=== PATIENT | female | born 1970 | race Hispanic/Latino ===

== ENCOUNTER 2017-06-02 09:35 | Outpatient (CLI) | payer OTHER ==
--- NOTE | 2017-06-02 10:13 | Mammography Report ---
LEFT DIGITAL DIAGNOSTIC MAMMOGRAM: 06/02/17 09:35:00 CLINICAL: For clip placement immediately status post ultrasound biopsy. COMPARISON:A recent outside mammogram. FINDINGS: A biopsy clip is now identified in the lower inner quadrant and correlates with the mass identified by ultrasound. IMPRESSION: Concordant clip placement status post ultrasound biopsy. BI-RADS CATEGORY: 4--Suspicious Pathology pending.
== END 2017-06-02 09:36 | disposition home or self-care (01) ==
LOC: SPVIMAG 09:35
PROVIDERS: ATTEND Surgery
DX: R92.8 Other abnormal and inconclusive findings on diagnostic imaging of breast (principal)
CPT/HCPCS: G0206-LT

== ENCOUNTER 2017-06-03 15:35 | Outpatient (CLI) | payer OTHER | END 2017-06-03 15:36 | disposition home or self-care (01) | LOC: LABHHL 15:35 | PROVIDERS: ATTEND Surgery | DX: C50.911 Malignant neoplasm of unspecified site of right female breast (principal) | CPT/HCPCS: 88305; 88361 ==

== ENCOUNTER 2017-06-24 12:54 | Outpatient (CLI) | payer OTHER ==
--- NOTE | 2017-06-26 11:31 | Magnetic Resonance Report ---
BILATERAL BREAST MRI WITHOUT AND WITH CONTRAST: 06/24/17 12:54:00 CLINICAL: Newly diagnosed left breast cancer. Status post ultrasound guided needle biopsy on 06/02/17 with findings of invasive mammary carcinoma with ductal and lobular features, grade 2. COMPARISON:06/02/17 left mammogram. TECHNIQUE: Axial 1.0-mm T1 without, axial high resolution 2.0-mm T2 and axial 1.0-mm dynamic Vibrant high-resolution postcontrast T1 fat saturation sequences on a 1.5 Lila magnet. The examination was performed with an 8 channel dedicated [employer] breast coil. Post processing with CAD and subtraction was performed on an [employer] workstation. 14.0 cc of Multihance was injected without incident via a right antecubital vein 22-gauge INT for the contrast portion of the exam. Consent was obtained prior to the administration of the contrast. FINDINGS: Right: Mild background parenchymal enhancement. No mass or suspicious enhancement. No suspicious right axillary or right internal mammary lymph nodes. Left: Mild background parenchymal enhancement. The known cancer is an irregular enhancing mass at 7 o'clock 6.6 cm from the nipple measuring 16.2 x 10.6 x 9.3 mm. It demonstrates heterogeneous enhancement with mixed kinetics, 148% peak enhancement in 10% type III washout. Lesion 2 is a suspicious irregular enhancing mass at 6:30 o'clock 5.3 cm from the nipple measuring 11.4 x 6.3 x 4.6 mm. It demonstrates heterogeneous enhancement with mixed kinetics, 154% peak enhancement in 1% type III washout. Lesion 3 is an irregular enhancing mass at 5 o'clock 6.1 cm from the nipple measuring 15.6 x 11.3 x 7.3 mm. It demonstrates heterogeneous enhancement with mixed kinetics, 199% peak enhancement and 7% type III washout. The known cancer and lesion 2 span approximately 3 cm in a ductal orientation toward the nipple. Lesion 3 is approximately 2.8 cm lateral to the known cancer and approximately 2.4 cm posterior and lateral from lesion 2. No suspicious left axillary or left internal mammary lymph nodes. IMPRESSION: Known left breast cancer at 7 o'clock and 2 additional highly suspicious masses of the left breast at 6 o'clock and 5 o'clock. Negative right breast. No suspicious lymph nodes. RIGHT BI-RADS 1 -- Negative LEFT BI-RADS 6 -- Known Cancer
== END 2017-06-24 12:55 | disposition home or self-care (01) ==
LOC: SPVIMAG 12:54
PROVIDERS: ATTEND Surgery
DX: C50.312 Malignant neoplasm of lower-inner quadrant of left female breast (principal)
CPT/HCPCS: A9577; C8908; 77059

== ENCOUNTER 2017-07-16 08:04 | Outpatient (CLI) | payer OTHER ==
--- NOTE | 2017-07-16 15:16 | Magnetic Resonance Report ---
MRI GUIDED VACUUM ASSISTED CORE BIOPSY AT TWO SITES LEFT BREAST: 07/16/17 CLINICAL: Known left breast cancer and 7 o'clock. 2 additional suspicious lesions of the left breast. COMPARISON: 06/24/17 MRI FINDINGS: Consent for the procedure was obtained. A Vibrant dynamic postcontrast series was performed on a 1.5 Lila magnet using an 8 channel Sent[employer]elle dedicated breast coil. 15.0 cc of Multihance was injected intravenously without incident via a right antecubital vein 20-gauge INT. The previously identified additional suspicious lesions were localized and targeted using [employer] Sentinelle biopsy software. The skin was anesthetized with 1% lidocaine and small dermatotomies were performed. 2% lidocaine was administered for deeper anesthesia. 9-G biopsy was performed with an [employer] (PVT) vacuum assisted device. Imaging demonstrated satisfactory positioning of the probe at the two sites and satisfactory samples were obtained. Clips were placed at both sites after confirmation of adequate sampling. The probes were removed and hemostasis was achieved with pressure to the sites. Sterile dressings were applied. The patient tolerated the procedure well and there were no apparent complications. A two view mammogram demonstrated concordant placement of both clips. The patient left the department in good condition and was given instructions instructions for wound care and follow-up. IMPRESSION: Uncomplicated MRI biopsy with clip placement at two sites left breast.
--- NOTE | 2017-07-16 15:16 | Magnetic Resonance Report ---
MRI GUIDED VACUUM ASSISTED CORE BIOPSY AT TWO SITES LEFT BREAST: 07/16/17 CLINICAL: Known left breast cancer and 7 o'clock. 2 additional suspicious lesions of the left breast. COMPARISON: 06/24/17 MRI FINDINGS: Consent for the procedure was obtained. A Vibrant dynamic postcontrast series was performed on a 1.5 Lila magnet using an 8 channel Sentinelle dedicated breast coil. 15.0 cc of Multihance was injected intravenously without incident via a right antecubital vein 20-gauge INT. The previously identified additional suspicious lesions were localized and targeted using [employer] biopsy software. The skin was anesthetized with 1% lidocaine and small dermatotomies were performed. 2% lidocaine was administered for deeper anesthesia. 9-G biopsy was performed with an [employer] vacuum assisted device. Imaging demonstrated satisfactory positioning of the probe at the two sites and satisfactory samples were obtained. Clips were placed at both sites after confirmation of adequate sampling. The probes were removed and hemostasis was achieved with pressure to the sites. Sterile dressings were applied. The patient tolerated the procedure well and there were no apparent complications. A two view mammogram demonstrated concordant placement of both clips. The patient left the department in good condition and was given instructions instructions for wound care and follow-up. IMPRESSION: Uncomplicated MRI biopsy with clip placement at two sites left breast.
--- NOTE | 2017-07-17 14:18 | Mammography Report ---
LEFT DIGITAL DIAGNOSTIC MAMMOGRAM: 07/16/17 08:04:00 CLINICAL: For clip placement immediately status post MRI guided needle biopsy at 2 sites. COMPARISON:06/02/17 FINDINGS: Two biopsy clips at 6 o'clock and 6:30 o'clock correlate with the areas biopsied by MRI guidance and they are labeled 1 and 2 respectively.A third clip correlates with the known cancer at 7 o'clock. IMPRESSION: Concordant clip placement status post MRI biopsy at 2 sites. BI-RADS CATEGORY: 6 -- Known Cancer Pathology pending.
== END 2017-07-16 08:05 | disposition home or self-care (01) ==
LOC: SPVIMAG 08:04
PROVIDERS: ATTEND Surgery
DX: N64.9 Disorder of breast, unspecified (principal); C50.312 Malignant neoplasm of lower-inner quadrant of left female breast
CPT/HCPCS: 19085; 19086; 77065; 88305; A9577

== ENCOUNTER 2017-07-21 08:06 | Outpatient (CLI) | payer OTHER ==
--- NOTE | 2017-07-22 10:02 | Ultrasound Report ---
ULTRASOUND GUIDED CLIP PLACEMENT LEFT BREAST: 07/21/17 Clinical: Known left breast cancer and status post recent MRI guided biopsy of two additional lesions with discordant pathology results. This study is being done to identify and place a clip at 5 o'clock at the site of a recent MRI a biopsy. Finding: Ultrasound of the left breast demonstrated a solid irregular hypoechoic shadowing mass at 5 o'clock 5 cm from the nipple which correlates with the suspicious finding on MRI. It measures 7 x 6 x 5 mm. Mild fluid at 5:30 o'clock 5 cm from the nipple measures 1.0 x 0.2 cm. The known cancer is a 7 o'clock with a biopsy clip. A hematoma at 6 o'clock 5 cm from the nipple measures 2.2 x 0.6 cm. With ultrasound guidance and 1% lidocaine for local anesthesia, a localizer clip was placed within the mass at 5 o'clock. The patient tolerated the procedure well and there were no apparent complications. A post procedure mammogram demonstrated for biopsy clips. The new clip is at 5 o'clock is concordant with the MRI finding in the lateral breast. IMPRESSION: Known cancer at 7 o'clock and a suspicious 7 mm mass at 5 o'clock 5 cm from the nipple. A localizer clip was placed within the mass at 5 o'clock.
--- NOTE | 2017-07-22 10:07 | Mammography Report ---
LEFT DIGITAL DIAGNOSTIC MAMMOGRAM: 07/21/17 08:06:00 CLINICAL: Known cancer at 7 o'clock. For clip placement immediately status post ultrasound guided placement of a clip at 5 o'clock 5 cm from the nipple. This new clip has been placed within a suspicious mass that correlates with a suspicious finding on the recent MRI. This clip placement necessitated by discordant path results from recent MRI biopsy at 5 o'clock. COMPARISON:07/16/17 FINDINGS: A new biopsy clip is identified at 5 o'clock and correlates with the mass identified on today's ultrasound. The known cancer is a 7 o'clock and 2 additional biopsy clips at 5:30 and 6:30 o'clock were placed at recent MRI biopsy which yielded negative pathology. IMPRESSION: Concordant clip placement. BI-RADS CATEGORY: 6--Known cancer Pathology pending.
== END 2017-07-21 08:07 | disposition home or self-care (01) ==
LOC: SPVIMAG 08:06
PROVIDERS: ATTEND Surgery
DX: C50.912 Malignant neoplasm of unspecified site of left female breast (principal); R92.8 Other abnormal and inconclusive findings on diagnostic imaging of breast; N64.89 Other specified disorders of breast
CPT/HCPCS: 76642; 76998; 77065; A4648

== ENCOUNTER 2017-07-22 05:49 | Day surgery (SDC) | payer OTHER ==
[~2017-07-22 05:49] MED LIST: MARCAINE 0.25% INFILTRATI ONE; WATER FOR IRRIG STERILE IR ONE; XYLOCAINE 1% 20 mL INFILTRATI ONE
[2017-07-22] MEDS ORDERED: NACL BACTERIOSTATIC INFILTRATI ONE (06:33)
[2017-07-22] MEDS ORDERED: XYLOCAINE 1% 20 mL ONE (07:36)
[2017-07-22] MEDS ORDERED: DIPRIVAN 10 MG/ML IV ONE (07:56)
--- NOTE | 2017-07-22 08:07 | Anesthesia Consultation ---
Anesthesia Consult and Med Hx Date of service: 07/22/17 - Airway Anesthetic Teeth Evaluation: Good ROM Head & Neck: Adequate Mental/Hyoid Distance: Adequate Mallampati Class: Class II Intubation Access Assessment: Probably Good - Pulmonary Exam CTA: Yes - Cardiac Exam Cardiac Exam: RRR (Grade 1 IWONA) - Pre-Operative Health Status ASA Pre-Surgery Classification: ASA3 Proposed Anesthetic Plan: General - Pulmonary Hx Smoking: No Hx Asthma: Yes (utilized regular inhaler) - Cardiovascular System Hx Hypertension: No Hx Heart Murmur: Yes - Central Nervous System Hx Psychiatric Problems: No - Gastrointestinal Hx Gastroesophageal Reflux Disease: No - Endocrine Hx Hypothyroidism: Yes - Other Systems Hx Alcohol Use: No Hx Substance Use: No Hx Cancer: Yes
[2017-07-22] MEDS ORDERED: DILAUDID IV PRN (08:08)
[2017-07-22] MEDS ORDERED: ZOFRAN IV PRN (08:08)
--- NOTE | 2017-07-22 08:08 | Anesthesia Day of Surgery ---
Anesthesia Day of Surgery - Day of Surgery Patient Examined: Yes Patient H&P Reviewed: Yes Patient is NPO: Yes Beta Blockers: Yes Cardiac Clearance: Yes Pulmonary Clearance: Yes Curt's Test: N/A
[2017-07-22] MEDS ORDERED: XYLOCAINE 1% 20 mL INFILTRATI NR (08:19)
[2017-07-22] MEDS ORDERED: DILAUDID ONE ×2 (08:39→11:20)
[2017-07-22] MEDS ORDERED: LACTATED RINGERS 1,000 ML IV SCH (09:00)
[2017-07-22] MEDS ORDERED: LEVAQUIN 500MG/100ML 500 MG/100 ML BAG IV NR (09:00)
[2017-07-22] MEDS ORDERED: MARCAINE 0.25% INFILTRATI ONE ×2 (09:03→11:00)
[2017-07-22] MEDS ORDERED: QUELICIN ONE (09:23)
[2017-07-22] MEDS ORDERED: XYLOCAINE MPF 2% ONE (09:23)
[2017-07-22] MEDS ORDERED: DECADRON ONE (09:23)
[2017-07-22] MEDS ORDERED: BENADRYL ONE (09:23)
[2017-07-22] MEDS ORDERED: CLEOCIN 600 MG/50 mL 600 MG/50 ML BAG IV NR (09:30)
[2017-07-22] MEDS ORDERED: XYLOCAINE 1% 20 mL INFILTRATI ONE (11:00)
[2017-07-22] MEDS ORDERED: ZOFRAN ONE (11:20)
[2017-07-22] MEDS ORDERED: WATER FOR IRRIG STERILE IR ONE (11:24)
--- NOTE | 2017-07-22 11:56 | Short Stay Summary ---
Short Stay Documentation Date of service: 07/22/17 - History H&P: obtained from office - Allergies and Medications Current Medications: Allergies cefazolin [From Ancef] Allergy (Verified 07/21/17 15:03) Hives hydrocodone [From Lortab] Allergy (Verified 07/21/17 15:03) Hives vancomycin Allergy (Verified 07/21/17 15:03) Hives Home Medications Medication Instructions Recorded Confirmed Last Taken Type Albuterol Sulfate [Ventolin Hfa] 1 inh IH PRN PRN 07/21/17 07/22/17 07/18/17 History Budesonide/Formoterol Fumarate 10.2 gm IH DAILY 07/21/17 07/22/17 07/22/17 04: 30 History [Symbicort 80-4.5 Mcg Inhaler] Levothyroxine [Synthroid] 50 mcg PO QAM 07/21/17 07/22/17 07/22/17 04:30 History Montelukast [Singulair] 10 mg PO QPM 07/21/17 07/22/17 07/21/17 History RX: Ibuprofen 800 mg PO Q8HR PRN #30 tablet 07/22/17 Unknown Rx Active Medications Hydromorphone HCl (Dilaudid) 0.5 mg IV Q10MIN PRN PRN Reason: Pain , Severe (7-10) Stop: 07/22/17 13:00 Lactated Ringer's (Lactated Ringers) 1,000 mls @ 42 mls/hr IV DIRECT TOAN Last Admin: 07/22/17 08:45 Dose: 42 mls/hr Clindamycin HCl (Cleocin 600 Mg/50 Ml) 600 mg in 50 mls @ 100 mls/hr IV PREOP NR Stop: 07/22/17 12:00 - Brief post op/procedure progress note Date of procedure: 07/22/17 Pre-op diagnosis: Left breast cancer of the lower inner quadrant Post-op diagnosis: same Procedure: Left needle localization partial mastectomy and SLNB Anesthesia: GETA Findings: Wire and clips present within partial mastectomy radiograph specimen; 4 SLNs Surgeon: RUTHIE BARON Street Sprinkler: MACK ASHLEY Estimated blood loss: minimal Pathology: list (left partial mastectomy and SLNB) Specimen disposition: to lab Condition: stable - Disposition Condition at discharge: Good Disposition: -01 TO HOME OR SELFCARE Short Stay Discharge Plan Activity: other (no heavy lifting) Diet: regular Wound: other (keep incision clean and dry; may shower in 48 hours, no baths, pools or lakes; do not rub or scrub incision) Follow up with: DESIRE VÁSQUEZ MD [Primary Care Provider] - 7 Days RUTHIE BARON MD [Staff Physician] - 7 Days Prescriptions: RX: Ibuprofen 800 mg PO Q8HR PRN #30 tablet PRN Reason: Pain
--- NOTE | 2017-07-22 12:10 | Operative Report ---
Operative Report Operative Report: Date of Service: July 22, 2017 Preoperative diagnosis: Left breast cancer of the lower inner quadrant Postoperative diagnosis: Same Procedure: Left needle localization partial mastectomy of the lower inner quadrant and SLNB Surgeon: Ping oMrton MD Hadoop Infrastructure Architect: Paola Lemus MD Anesthesia: General Findings: Left wire and clips present within radiograph specimen; 4 SLNs Complications: None EBL: Minimal Disposition: PACU in good condition Indications for operative procedure: This is a 47year old lady with newly diagnosed Stage I left breast cancer of the lower inner quadrant. Recommendations are to proceed with a partial mastectomy. She wished to proceed with the above. Procedure in detail: The patient was taken to radiology for wire placement for localization of known area of cancer and additional area of concern at the 5:00 position. Patient was then taken to the operating room. Gen. anesthesia was administered. The left nipple was injected with radioisotope. The left breast and axilla were prepped and draped in the normal sterile operative fashion. Timeout was performed. The wire was identified. Gamma probe was inserted into the axilla. The area of hot spot was identified. A left axillary incision was made with a 15 blade knife with dissection taken down to the subcutaneous tissues. The axillary fascia was opened with the Bovie cautery. 4 SLNS were identified and dissected free. All remaining counts were less than 10% of the highest count. Lymph nodes were sent to pathology for permanent processing. Hemostasis was obtained in the left axillary cavity. Axillary cavity was appropriately irrigated and suctioned. Hemostasis was noted. Axillary fascia was approximated and closed using interrupted 3-0 Vicryl and the skin brought together and closed using a running 4-0 Monocryl followed by skin affix. Attention was then taken towards the left breast. 2 wires were placed to localize the areas of concern. Ultrasound was used to identify the clip at the 5 :00 position and known cancer. Lower inner breast incision was made with a 15 blade knife and dissection taken down to subcutaneous tissues. First began raising of the lateral flap with removal of the wire from the skin with dissection take down to the pectoralis muscle, followed by raising of the medial flap, superior flap and then inferior flap with all flaps taken down to the pectoralis muscle. The breast area of concern was appropriately removed posteriorly from the pectoralis muscle with the aid of the Bovie cautery. The wires were not encountered. Specimen was marked and then sent to pathology and radiology; radiograph specimen with wire and clips present. Discusssed with Dr. Sinha, 3 clips present with one clip marking the known cancer and 2 additional clips marking the areas of concern; 4th clip not present and Dr. Sinha reported that was the discordant clip and not the clip marking the area of concern. Breast cavity was irrigated and hemostasis was obtained. Breast cavity defect was 7x5 cm, proceeded with oncoplastic closure with medial and lateral mobilization.The breast cavity was anesthetized with 1% lidocaine mixed with quarter percent Marcaine. The posterior deep breast tissues were approximated and closed using interrupted 3-0 Vicryl in layers. The subcutaneous tissues were approximated and closed using interrupted 3-0 Vicryl followed by closing of the skin with a running 4-0 Monocryl and skin affix. The patient tolerated surgery very well and she was awaken from anesthesia without any complication and transported to PACU in good condition.
--- NOTE | 2017-07-22 13:21 | Mammography Report ---
NEEDLE LOCALIZATION AND HOOKWIRE PLACEMENT X2 LEFT BREAST:07/22/17 CLINICAL: Known left breast cancer at 7 o'clock and a suspicious mass at 5 o'clock. COMPARISON: 07/21/17 FINDINGS: Using mammographic guidance, 1% lidocaine local anesthesia and sterile technique, a 10.0-cm Sharpe hookwire was placed from a medial approach to localize the lateral clip at 5 o'clock and a 5 cm Sharpe hookwire was placed from a medial approach to localize the known cancer a 7 o'clock. Mammographic views demonstrated satisfactory targeting. Hook wires were deployed and an additional orthogonal CC image was obtained. The patient tolerated the procedure well and there were no apparent complications. IMPRESSION: Uncomplicated hookwire placement at two sites left breast.
--- NOTE | 2017-07-22 13:25 | Mammography Report ---
SPECIMEN RADIOGRAPH LEFT BREAST: 07/22/17 05:49:00 CLINICAL: Surgical excision of known cancer at 7 o'clock and an additional suspicious lesion at 5 o'clock. FINDINGS: The targeted biopsy clips at 7 o'clock and 5 o'clock are identified within the specimen. A third clip corresponds to the recent MRI biopsy 2. IMPRESSION: Excision of the targeted lesions.
--- NOTE | 2017-07-22 18:19 | Post Anesthesia Evaluation ---
- Post Anesthesia Evaluation Patient Participated: Yes Airway Patent: Yes Stable Respiratory Function: Yes Nausea/Vomiting: No Temp > 96.8F: Yes Pain Manageable: Yes Adequeate Hydration: Yes Anesthesia Complications: No
[2017-07-22 19:58] VITALS: BP 107/56
== END 2017-07-22 15:05 | disposition home or self-care (01) ==
LOC: OR 05:49
PROVIDERS: ATTEND Surgery
DX: C50.312 Malignant neoplasm of lower-inner quadrant of left female breast (principal); Z85.3 Personal history of malignant neoplasm of breast; J45.909 Unspecified asthma, uncomplicated; E03.9 Hypothyroidism, unspecified; Z90.710 Acquired absence of both cervix and uterus; Z98.890 Other specified postprocedural states
CPT/HCPCS: 19125; 19281; 19282; 19301; 38525; 76098; 78800; 88307; 88333; 88342; A9541; J0330; J1100; J1170; J1200; J1956; J2405; J2704; J7120

== ENCOUNTER 2017-08-12 10:23 | Observation (INO) | payer OTHER ==
--- NOTE | 2017-08-12 11:41 | Anesthesia Consultation ---
Anesthesia Consult and Med Hx Date of service: 08/12/17 - Airway Anesthetic Teeth Evaluation: Poor ROM Head & Neck: Adequate Mental/Hyoid Distance: Adequate Mallampati Class: Class II Intubation Access Assessment: Probably Good - Pulmonary Exam CTA: Yes - Cardiac Exam Cardiac Exam: RRR - Pre-Operative Health Status ASA Pre-Surgery Classification: ASA2 Proposed Anesthetic Plan: General Nerve Block: PEC - Pulmonary Hx Smoking: No Hx Asthma: Yes (utilized regular inhaler) - Cardiovascular System Hx Hypertension: No Hx Heart Murmur: Yes - Central Nervous System Hx Psychiatric Problems: No - Gastrointestinal Hx Gastroesophageal Reflux Disease: No - Endocrine Hx Hypothyroidism: Yes - Other Systems Hx Alcohol Use: No Hx Substance Use: No Hx Cancer: Yes
--- NOTE | 2017-08-12 11:41 | Anesthesia Day of Surgery ---
Anesthesia Day of Surgery - Day of Surgery Patient Examined: Yes Patient H&P Reviewed: Yes Patient is NPO: Yes
[2017-08-12] MEDS ORDERED: SUBLIMAZE IV NR (12:00)
[2017-08-12] MEDS ORDERED: NACL 0.9% 1000 ML 1,000 ML IV SCH (12:00)
[2017-08-12] MEDS ORDERED: VERSED IV NR (12:00)
[2017-08-12] MEDS ORDERED: MARCAINE 0.25% INFILTRATI ONE ×2 (12:18→13:13)
[2017-08-12] MEDS ORDERED: XYLOCAINE MPF 2% ONE (12:19)
[2017-08-12] MEDS ORDERED: SUBLIMAZE ONE (12:19)
[2017-08-12] MEDS ORDERED: ZEMURON IV ONE (12:19)
[2017-08-12] MEDS ORDERED: DECADRON ONE (12:19)
[2017-08-12] MEDS ORDERED: DIPRIVAN 10 MG/ML IV ONE (12:20)
[2017-08-12] MEDS ORDERED: CLEOCIN 600 MG/50 mL 600 MG/50 ML BAG IV NR (13:00)
[2017-08-12] MEDS ORDERED: WATER FOR IRRIG STERILE IR ONE (13:13)
[2017-08-12] MEDS ORDERED: HEPARIN 10,000 UNITS/10 ML IR ONE (13:13)
--- NOTE | 2017-08-12 13:22 | Short Stay Summary ---
Short Stay Documentation Date of service: 08/12/17 - History H&P: obtained from office - Allergies and Medications Current Medications: Allergies cefazolin [From Ancef] Allergy (Verified 08/11/17 12:55) Hives hydrocodone [From Lortab] Allergy (Verified 08/11/17 12:55) Hives levofloxacin [From Levaquin] Allergy (Verified 08/12/17 10:55) Hives vancomycin Allergy (Verified 08/11/17 12:55) Hives Home Medications Medication Instructions Recorded Confirmed Last Taken Type Albuterol Sulfate [Ventolin Hfa] 1 inh IH PRN PRN 07/21/17 08/11/17 07/18/17 History Budesonide/Formoterol Fumarate 10.2 gm IH DAILY 07/21/17 08/12/17 08/12/17 08: 30 History [Symbicort 80-4.5 Mcg Inhaler] Levothyroxine [Synthroid] 50 mcg PO QAM 07/21/17 08/12/17 08/12/17 08:30 History Montelukast [Singulair] 10 mg PO QPM 07/21/17 08/12/17 08/11/17 20:00 History Active Medications Sodium Chloride (Nacl 0.9% 1000 Ml) 1,000 mls @ 100 mls/hr IV DIRECT TOAN Last Admin: 08/12/17 11:55 Dose: 100 mls/hr Clindamycin HCl (Cleocin 600 Mg/50 Ml) 600 mg in 50 mls @ 100 mls/hr IV PREOP NR PRN Reason: Protocol Stop: 08/12/17 23:59 Midazolam HCl (Versed) 2 mg IV PREOP NR Stop: 08/12/17 23:59 Last Admin: 08/12/17 12:42 Dose: 2 mg - Brief post op/procedure progress note Date of procedure: 08/12/17 Pre-op diagnosis: Left axillary loly metastasis and indeterminate left breast margin Post-op diagnosis: same Procedure: Left ALND and left breast margin revision Anesthesia: GETA Findings: L ALND and left breast margin revision; port placement by Dr. Ashley Surgeon: RUTHIE BARON Salvage Grinder: MACK ASHLEY Estimated blood loss: minimal Pathology: list (left ALND and left breast margin revision) Specimen disposition: to lab Condition: stable - Disposition Condition at discharge: Good Disposition: [id number]-TRM GEN HOSP IP Short Stay Discharge Plan Activity: other (no heavy lifting) Diet: regular Wound: other (keep incision clean and dry; may shower in 24 hours; no baths, pools or lakes; keep ABBEY drain site dry) Follow up with: DESIRE VÁSQUEZ MD [Primary Care Provider] - 7 Days RUTHIE BARON MD [Staff Physician] - 7 Days
--- NOTE | 2017-08-12 13:27 | Operative Report ---
Operative Report Operative Report: Date of Service: August 12, 2017 Preoperative diagnosis: Left breast cancer of the lower inner/outer quadrant Postoperative diagnosis: Same Procedure: Left lateral breast margin revision and left axillary lymph node dissection Surgeon: Ping Morton MD Rag Cutting Machine Operator: Paola Lemus DO Anesthesia: General Findings: Left lateral breast margin revision and left ALND Complications: None Drains: 19 indonesian ABBEY EBL: Minimal Disposition: PACU in good condition Indications for operative procedure: This is a 47 year old lady with newly diagnosed Stage II multifocal left breast cancer of the lower inner and lower outer quadrant. Patient with known left axillary positive metastatic lymph node with one axillary lymph node with extranodal extension and recommendations for ALND. Left lateral breast margin unable to be assessed due to pathology with cutting of the specimen and recommendations for lateral margin revision. Patient will undergo adjuvant chemotherapy and port placement by Dr. Lemus. Patient wished to proceed with the above procedures. Procedure in detail: Patient was then taken to the operating room. Gen. anesthesia was administered. Left breast was prepped and draped in the normal sterile operative fashion. Timeout was performed. Port was placed by Dr. Lemus on right chest. Attention was then taken towards the left breast and axilla. Left lower inner quadrant breast incision was noted and opened with 15 blade knife. Seroma was drained. The lateral margin was then revised using bovie cautery. Specimen was marked and sent to pathology. Hemostasis was obtained using bovie cautery. Deep breast tissues were approximated and closed using 3-0 Vicryl and skin closed using running 4-0 Monocryl followed by skin affix. Attention was then taken towards the left axilla. A lazy S axillary incision was made with a 15 blade knife to include prior incision. Dissection was taken down to the subcutaneous tissues. First began opening of the axillary fascia with scar tissue noted. The lattismus dorsi muscle was identified and followed superiorly. Then proceeded with ALND dissection with identification of the axillary vein followed by identification of the thoracodorsal bundle and long thoracic nerve. Axillary lymph nodes were then removed from the above boundaries, inferior to the axillary vein and between long thoracic nerver and thoracodorsal bundle with the aid of the bovie cautery and sweeping-like motion and then sent to pathology. Both nerves were identified and unharmed. Hemostasis was noted. 19 Faroese ABBEY drain was placed and sutured in. Axillary fascia was approximated and closed using interrupted 3-0 Vicryl and skin brought together and closed using a running 4-0 Monocryl followed by skin affix. She tolerated surgery very well and was awaken from anesthesia without any complication and then transported to PACU in good condition.
--- NOTE | 2017-08-12 14:44 | Operative Report ---
Operative Report Operative Report: Date of operation: 08/12/2017 Reoperative diagnosis: Left-sided breast cancer Postoperative diagnosis: Same as above Procedure performed: Placement of right subclavian Port-A-Cath with ultrasound guidance Surgeon: Quentin Lemus DO Order Booker: Cristhian Morton MD Anesthesia: LMA Findings: On intraoperative CXR - good placement of port and no PTX EBL: <10cc Complications: none Disposition: stable in OR for next portion of procedure performed by Dr. Morton. HPI and indication: Patient is a 47-year-old female who has been diagnosed with left-sided breast cancer status post partial mastectomy with sentinel lymph node dissection by Dr. Morton. The patient is seen by oncology as outpatient and deemed a candidate for chemotherapy. All of the risks associated with the procedure were discussed with the patient including but not limited to pneumothorax, infection, bleeding, malpositioned port, injury to other structures. The patient understands and all questions were answered. Consent was signed and placed on chart. Procedure in detail: The patient was identified in the preoperative area, taken back to operating room, placed on operating table in supine position. After anesthesia was induced both arms were tucked and upper chest and neck were prepped and draped in usual sterile fashion. A timeout was performed. The was placed in Trendelenburg position. Local anesthetic was infiltrated into the skin at the intended puncture site. The right subclavian vein was identified using ultrasound guidance and accessed on second stick. There was return of dark red, nonpulsatile blood. The wire was threaded under fluoroscopy without resistance and positioning confirmed. The needle was then removed. Using a 15 blade, an incision was made in the Right upper chest and dissection carried down through the skin and subcutaneous tissue using Bovie electrocautery. Hemostasis was achieved along the way. A pocket for the port was then created bluntly and with electrocautery. The catheter was flushed and tunneled from the pocket to the wire. A breakaway catheter/dilator sheath then inserted over the wire under fluoroscopy, and the wire and dilator removed. The catheter was then inserted through the breakaway catheter which was then removed. The catheter sat flush under the skin. Using continuous fluoroscopy, the catheter was pulled back until the tip was visualized in the right atrium. The catheter was then cut to size and the port attached in the usual fashion. The port was then sutured into place to the pre-pectoral fascia using 2-0 Vicryl interrupted sutures. The wound was irrigated and hemostasis ensured. The port was tested with heparinized saline and there was return of blood and it flushed easily. The port was then instilled with 3000 units of straight heparin. The skin and subcutaneous tissue was infiltrated with 0.25% Marcaine. The deep dermal layer was then closed with interrupted 3-0 Vicryl stitches. The skin incisions were closed with 4-0 Monocryl subcuticular stitches and skin glue. Intraoperative chest x-ray did show good positioning of the port, without evidence of pneumothorax. At the end of the case, all sponge, instrument, sharp counts were correct 2. The patient was in stable condition at the end of the case and remained in the OR for the next procedure to be performed by Dr. Morton (please see separate operative dictation.)
--- NOTE | 2017-08-12 15:29 | Fluoroscopy Report ---
PORTABLE CHEST INDICATION: Left breast cancer. COMPARISON: None similar. FINDINGS: Portable, frontal chest radiograph demonstrates a right chest port tip about the cavoatrial junction. Clear lungs. Normal cardiomediastinal silhouette. No acute osseous process. CONCLUSION: Uncomplicated right chest port placement, as described. Thank you for the opportunity to participate in this patient's care.
[2017-08-12] MEDS ORDERED: NACL 0.9% 1000 ML 1,000 ML ONE (15:54)
[2017-08-12] MEDS ORDERED: ZOFRAN ONE (15:54)
[2017-08-12] MEDS ORDERED: ZOFRAN IV PRN (16:55)
[2017-08-12] MEDS ORDERED: SODIUM CHLORIDE FLUSH SYRINGE 10 ML IV PRN (16:55)
[2017-08-12] MEDS ORDERED: TYLENOL PO PRN (16:55)
[2017-08-12] MEDS ORDERED: REGLAN PO PRN (16:55)
[2017-08-12] MEDS ORDERED: BENADRYL PO PRN (16:55)
[2017-08-12] MEDS ORDERED: SUBLIMAZE IV PRN (16:59)
[2017-08-12] MEDS ORDERED: LACTATED RINGERS 1,000 ML IV SCH (17:00)
[2017-08-12] MEDS: ULTRAM PO PRN ×2 (17:51→22:13)
[2017-08-13] MEDS: ULTRAM PO PRN ×2 (04:28→08:37)
--- NOTE | 2017-08-13 07:45 | Progress Note ---
Assessment and Plan This is a 47 year old lady with Stage II left breast cancer, POD#1 left ALND, left breast margin revision and left port placement. 1. No acute events overnight. 2. Pain well controlled. 3. Left breast, left axilla and right chest incisions healing well. ABBEY drain to bulb suction. 4. OOB to hallway. 5. D/C planning for today. Subjective Date of service: 08/13/17 Principal diagnosis: Stage II left breast cancer Interval history: POD#1 l ALND, left breast margin revision and right port placement Objective - Constitutional Vitals: Vital Signs - 12hr 18 08/13/17 00:00 04:00 Temperature 98.6 F 98.7 F Pulse Rate 70 65 Respiratory 18 16 Rate Blood Pressure 98/65 103/69 [Right] General appearance: Present: no acute distress - EENT Eyes: PERRL, EOM intact ENT: hearing intact, clear oral mucosa, dentition normal Ears: bilateral: normal - Neck Neck: supple - Respiratory Respiratory effort: normal Respiratory: bilateral: CTA - Breasts Breasts: other (left breast incision healing well; left axillary incision healing well; ABBEY drain to bulb suction; right port incision healing well; no fluid collections) - Cardiovascular Rhythm: regular Extremities: no ischemia, pulses intact, pulses symmetrical, No edema, normal temperature, normal color, Full ROM - Gastrointestinal General gastrointestinal: Present: soft, non-tender, non-distended - Integumentary Integumentary: clear, warm, dry - Musculoskeletal Musculoskeletal: strength equal bilaterally - Neurologic Neurologic: CNII-XII intact, moves all extremities - Psychiatric Psychiatric: appropriate mood/affect, intact judgment & insight, memory intact, cooperative
[2017-08-13 09:09] VITALS: BP 103/68
== END 2017-08-13 11:00 | disposition home or self-care (01) ==
LOC: OR 10:23 → OB 16:56
PROVIDERS: ADMIT Surgery; ATTEND Surgery
DX: C50.312 Malignant neoplasm of lower-inner quadrant of left female breast (principal); C50.512 Malignant neoplasm of lower-outer quadrant of left female breast; E03.9 Hypothyroidism, unspecified; Z80.3 Family history of malignant neoplasm of breast; Z90.12 Acquired absence of left breast and nipple
CPT/HCPCS: 19302; 36561; 64450; 76937; 77001; 88305; 88307; 96374; 96375; C1788; G0378; J1100; J1644; J2250; J2405; J2704; J3010; J7030; J7120

== ENCOUNTER 2018-12-07 08:45 | Outpatient (CLI) | payer OTHER ==
--- NOTE | 2018-12-07 09:54 | Mammography Report ---
LEFT DIGITAL DIAGNOSTIC MAMMOGRAM with CAD: 12/07/18 08:45:00 CLINICAL: Followup left breast cancer status post partial mastectomy 07/22/17 COMPARISON:06/08/18 FINDINGS: The breast is heterogeneously dense with a stable pattern. Stable lower inner postsurgical scar with a biopsy clip. Stable moderate skin thickening of the breast.No mass, suspicious architectural distortion or suspicious calcifications. IMPRESSION: No mammographic evidence of malignancy. BI-RADS CATEGORY: 2 - - Benign RECOMMENDATION: Routine mammographic screening. COMMENT: 1. Dense breast tissue, i.e., adenosis, fibrocystic changes, etc., may obscure an underlying neoplasm. 2. Approximately 10% of cancers are not detected with mammography. 3. A negative mammography report should not delay biopsy if a clinically suspicious mass is present. COMMENT: Patient follow-up letters are generated by our [employer] application.
== END 2018-12-07 08:46 | disposition home or self-care (01) ==
LOC: SPVWC 08:45
PROVIDERS: ATTEND Surgery
DX: C50.312 Malignant neoplasm of lower-inner quadrant of left female breast (principal); J45.909 Unspecified asthma, uncomplicated; E03.9 Hypothyroidism, unspecified